=== PATIENT | male | born 1975 | race Caucasian/White ===

== ENCOUNTER 2016-11-14 18:10 | Observation (INO) | payer OTHER ==
--- NOTE | 2016-11-14 18:16 | UCPHY ---
H & P Patient Type: New HPI/ROS: HPI CHIEF COMPLAINT: Chest Pain HISTORY OF PRESENT ILLNESS: this patient very pleasant 41-year-old male, denies any significant medical history does not take any daily medications, he presents to the urgent care by private vehicle after states over the past few days every time he goes to run he gets exertional chest discomfort he describes is achiness in left side of his chest. He also describes as tightness. It does not radiate up his neck or down his arm. He does not get nauseous or diaphoretic with it. He has to stop a running for the chest pain to go away. patient tells me initially started having this discomfort on Monday when he was going for a run, he then felt a little tightness in his chest on Monday as well as Monday however was exacerbated when he runs for run today on Monday. Past Medical History: No significant medical history Past Surgical History:no significant surgical Social History: Denies daily use drugs alcohol tobacco products Family History: noncontributory , specifically no significant family history of coronary artery disease or premature cardiac disease ROS REVIEW OF SYSTEMS: A comprehensive 10 point review of systems is otherwise negative aside from elements mentioned in the history of present illness. Exam Constitutional triage nursing summary reviewed, vital signs reviewed, awake/ alert. Eyes normal conjunctivae and sclera, EOMI, PERRLA. HENT normal inspection, atraumatic, moist mucus membranes, no epistaxis, neck supple/ no meningismus, no raccoon eyes. Respiratory clear to auscultation bilaterally, normal breath sounds, no respiratory distress, no wheezing. Cardiovascular rate normal, regular rhythm, no murmur, no edema, distal pulses normal. Gastrointestinal soft, non-tender, no rebound, no guarding, normal bowel sounds, no distension, no pulsatile mass. Genitourinary no CVA tenderness. Musculoskeletal no midline vertebral tenderness, full range of motion, no calf swelling, no tenderness of extremities, no meningismus, good pulses, neurovascularly intact. Skin pink, warm, & dry, no rash, skin atraumatic. Neurologic awake, alert and oriented x 3, AAOx3, moves all 4 extremities equally, motor intact, sensory intact, CN II-XII intact, normal cerebellar, normal vision, normal speech. Psychiatric normal mood/affect. Heme/Lymph/Immune no lymphadenopathy. Differential diagnosis includes but is not limited to: ACS, atypical chest pain , pneumothorax, pneumonia, pulmonary embolism, aortic dissection, congestive heart failure, tumor, musculoskeletal pain, esophageal pain, GERD, peptic ulcer disease, pancreatitis Medical Decision Making:This patient had an IV established obtain blood work, he will need EKG be placed on full night monitor, will need troponin, D-dimer , chest x-ray full-dose aspirin be given to him. At this time he tells me feels lightheaded. He has not had significant chest comfort at this time. Re-evaluation: EKG interpretation by me on record in [email or web address] system. Impression Time of EKG , this is sinus rhythm rate of 58, no acute ischemic changes specifically no ST elevation, ST depression, T-wave abnormalities prolonged intervals. Unremarkable EKG. 1902: EKG interpretation by me on record in [employer] system. Impression Time of EKG now 1856, this is sinus rhythm rate of 51 I do not appreciate acute ischemic changes or ST elevation ST depression T-wave abnormalities. ED x-ray chest: negative for acute cardiopulmonary disease. Image interpreted by myself. 2012: Re-evaluation at this time this patient is resting comfortably chest pain-free. EKG is nonischemic, troponin negative. Due to his exertional chest discomfort left-sided chest when he runs and relief of chest pain when he stops running this concerning for cardiac disease. Safest thing to do for this patient to be admitted to the [facility] chest pain observation unit and rule out serial cardiac enzymes and a stress test. Spoke with Dr. Pillai who agrees to admit this patient. Patient agrees for transfer and admission. Source: Patient - Family History Significant Family History: No pertinent family hx Constitutional: Initial Vital Signs Temperature (C) 36.6 C 11/14/16 18:24 Heart Rate 53 L 11/14/16 18:24 Respiratory Rate 18 11/14/16 18:24 Blood Pressure 147/74 H 11/14/16 18:24 O2 Sat (%) 97 11/14/16 18:24 O2 Delivery Mode Room Air Allergies/Adverse Reactions: No Known Allergies Allergy (Unverified 11/14/16 18:24) Home Medications: Medication Instructions Recorded NK [No Known Home Meds] 11/14/16 Medical Decision Making - Data Points Laboratory Results: Laboratory Results 11/14/16 18:20 11/14/16 18:20 11/14/16 11/14/16 11/14/16 18:26 18:20 18:20 WBC RBC Hgb Hct MCV MCH MCHC RDW Plt Count MPV Neut % (Auto) Lymph % (Auto) [place] % (Auto) Eos % (Auto) Baso % (Auto) Nucleat RBC Rel Count Absolute Neuts (auto) Absolute Lymphs (auto) Absolute Monos (auto) Absolute Eos (auto) Absolute Basos (auto) Absolute Nucleated RBC Immature Gran % Immature Gran # PT 12.9 SEC SEC (12.0-15.0) INR 1.00 (0.83-1.16) APTT 28.3 SEC SEC (23.0-38.0) D-Dimer < 0.27 ug/mLFEU ug/mLFEU (0.00-0.50) Sodium 142 mEq/L mEq/L (134-144) Potassium 4.0 mEq/L mEq/L (3.5-5.2) Chloride 102 mEq/L mEq/L (97-110) Carbon Dioxide 25 mEq/l mEq/l (22-31) Anion Gap 15 mEq/L mEq/L (8-16) BUN 17 mg/dL mg/dL (7-23) Creatinine 0.8 mg/dL mg/dL (0.7-1.3) Estimated GFR > 60 Glucose 95 mg/dL mg/dL (70-100) Calcium 8.7 mg/dL mg/dL (8.5-10.4) Magnesium 1.9 mg/dL mg/dL (1.6-2.3) Total Bilirubin 1.4 mg/dL mg/dL (0.1-1.4) Conjugated Bilirubin 0.1 mg/dL mg/dL (0.0-0.5) Unconjugated Bilirubin 1.3 mg/dL H mg/dL (0.0-1.1) AST 33 IU/L IU/L (17-59) ALT 36 IU/L IU/L (21-72) Alkaline Phosphatase 49 IU/L IU/L (38-126) Troponin I < 0.012 ng/mL ng/mL (0-0.034) NT-Pro-B Natriuret Pep 36 pg/mL pg/mL (0-125) Total Protein 7.2 g/dL g/dL (6.3-8.2) Albumin 4.0 g/dL g/dL (3.5-5.0) Lipase 173.0 IU/L IU/L (23-300) 11/14/16 18:20 WBC 7.12 10^3/uL 10^3/uL (3.80-9.50) RBC 4.47 10^6/uL 10^6/uL (4.40-6.38) Hgb 14.2 g/dL g/dL (13.7-17.5) Hct 40.2 % % (40.0-51.0) MCV 89.9 fL fL (81.5-99.8) MCH 31.8 pg pg (27.9-34.1) MCHC 35.3 g/dL g/dL (32.4-36.7) RDW 12.2 % % (11.5-15.2) Plt Count 190 10^3/uL 10^3/uL (150-400) MPV 10.4 fL fL (8.7-11.7) Neut % (Auto) 53.5 % % (39.3-74.2) Lymph % (Auto) 34.1 % % (15.0-45.0) [place] % (Auto) 10.7 % % (4.5-13.0) Eos % (Auto) 1.0 % % (0.6-7.6) Baso % (Auto) 0.4 % % (0.3-1.7) Nucleat RBC Rel Count 0.0 % % (0.0-0.2) Absolute Neuts (auto) 3.81 10^3/uL 10^3/uL (1.70-6.50) Absolute Lymphs (auto) 2.43 10^3/uL 10^3/uL (1.00-3.00) Absolute Monos (auto) 0.76 10^3/uL 10^3/uL (0.30-0.80) Absolute Eos (auto) 0.07 10^3/uL 10^3/uL (0.03-0.40) Absolute Basos (auto) 0.03 10^3/uL 10^3/uL (0.02-0.10) Absolute Nucleated RBC 0.00 10^3/uL 10^3/uL (0-0.01) Immature Gran % 0.3 % % (0.0-1.1) Immature Gran # 0.02 10^3/uL 10^3/uL (0.00-0.10) PT INR APTT D-Dimer Sodium Potassium Chloride Carbon Dioxide Anion Gap BUN Creatinine Estimated GFR Glucose Calcium Magnesium Total Bilirubin Conjugated Bilirubin Unconjugated Bilirubin AST ALT Alkaline Phosphatase Troponin I NT-Pro-B Natriuret Pep Total Protein Albumin Lipase Departure - Departure Disposition: [facility] Inpatient Acute Clinical Impression: Chest pain Qualifiers: Chest pain type: unspecified Qualified Code(s): R07.9 - Chest pain, unspecified Condition: Fair Referrals: DANIEL DRAKE MD [Other] - As per Instructions - PQRS PQRS Measurement: n/a
--- NOTE | 2016-11-14 18:21 | CPEKG ---
Heart Rate: 58 RR Interval: 1034 P-R Interval: 152 QRSD Interval: 92 QT Interval: 424 QTC Interval: 417 P [place]: 63 QRS [place]: 84 T Wave [place]: 56 EKG Severity - NORMAL ECG - EKG Impression: SINUS RHYTHM Electronically Signed By: Nagi Pablo 15-Nov-2016 15:10:37
[2016-11-14] MEDS ORDERED: ASPIRIN 81 MG CHEWABLE TAB PO ONE (18:23)
[2016-11-14 18:46] LABS: % IMMATURE GRANULYOCYTES 0.3 % (0.0-1.1); ABSOLUTE IMMATURE GRANULOCYTES 0.02 10^3/uL (0.00-0.10); ADD DIFF? NO; ADD MORPH? NO; ADD SCAN? NO; ATYPICAL LYMPHOCYTE FLAG 0 (0-99); FRAGMENT RBC FLAG 0 (0-99); HEMATOCRIT 40.2 % (40.0-51.0); HEMOGLOBIN 14.2 g/dL (13.7-17.5); LEFT SHIFT FLG 0 (0-99); LIPEMIA HEMOLYSIS FLAG 90 (0-99); MEAN CELL HEMOGLOBIN 31.8 pg (27.9-34.1); MEAN CELL HEMOGLOBIN CONCENTR. 35.3 g/dL (32.4-36.7); MEAN CELL VOLUME 89.9 fL (81.5-99.8); MEAN PLATELET VOLUME 10.4 fL (8.7-11.7); PLATELET CLUMPS FLAG 10 (0-99); PLATELET COUNT 190 10^3/uL (150-400); RED BLOOD CELL COUNT 4.47 10^6/uL (4.40-6.38); RED CELL DISTRIBUTION WIDTH 12.2 % (11.5-15.2)
[2016-11-14 18:59] LABS: ALANINE AMINOTRANSFERASE 36 IU/L (21-72); ALKALINE PHOSPHATASE 49 IU/L (38-126); ANION GAP 15 mEq/L (8-16); ASPARTATE AMINOTRANSFERASE 33 IU/L (17-59); BILIRUBIN,TOTAL 1.4 mg/dL (0.1-1.4); BILIRUBIN-CONJUGATED 0.1 mg/dL (0.0-0.5); BILIRUBIN-UNCONJUGATED 1.3 mg/dL (0.0-1.1); CALCIUM 8.7 mg/dL (8.5-10.4); CARBON DIOXIDE 25 mEq/l (22-31); CHLORIDE 102 mEq/L (97-110); CREATININE 0.8 mg/dL (0.7-1.3); GLOMERULAR FILTRATION RATE > 60; GLUCOSE 95 mg/dL (70-100); MAGNESIUM 1.9 mg/dL (1.6-2.3); SODIUM 142 mEq/L (134-144); TOTAL PROTEIN 7.2 g/dL (6.3-8.2)
[2016-11-14 19:07] LABS: PROTIME(PATIENT) 12.9 SEC (12.0-15.0)
[2016-11-14 19:08] LABS: APTT 28.3 SEC (23.0-38.0)
--- NOTE | 2016-11-14 20:22 | CPEKG ---
Heart Rate: 51 RR Interval: 1176 P-R Interval: 164 QRSD Interval: 96 QT Interval: 448 QTC Interval: 413 P [place]: 65 QRS [place]: 84 T Wave [place]: 60 EKG Severity - NORMAL ECG - EKG Impression: SINUS RHYTHM Electronically Signed By: Nagi Pablo 15-Nov-2016 15:10:37
[2016-11-15] MEDS ORDERED: ONDANSETRON 4 MG/2 ML VIAL IVP PRN (00:24)
[2016-11-15] MEDS ORDERED: ACETAMINOPHEN 325 MG TAB PO PRN (00:24)
[2016-11-15] MEDS ORDERED: ONDANSETRON DISINTEGRATING 4 MG TAB PO PRN (00:24)
[2016-11-15] MEDS ORDERED: NITROGLYCERIN 0.4 MG BTL SL PRN (00:24)
--- NOTE | 2016-11-15 04:46 | PDGENHP ---
History and Physical - Chief Complaint chest pain - History of Present Illness patient a 41-year-old male with no significant past medical history [facility] with a complaint of chest pain. patient 1st noticed his symptoms on Monday, when he was on mile 5 of his 8 mile run he began experiencing chest tightness. he was forced to slow his paced due to the symptoms, which lasted the entirety of him running. Symptoms improved with rest. Chest tightness was nonradiating and not associated with any palpitations , shortness of breath, dizziness or lightheadedness. Over the weekend he took a break from running and did not experience any chest symptoms. On the day of presentation patient again went out for run, this time when running uphill he again noticed left-sided chest tightness /shortness. He stopped running and went home. While sitting at dinner he again felt left-sided chest soreness / tightness and associated dizziness. given presence of his symptoms at rest, he decided to go to the urgent care for further evaluation. Of note, patient exercises regularly without symptoms. He has never undergone a stress test, he has no family history of cardiac disease and is a nonsmoker. [facility] patient was afebrile hemodynamically stable. initial blood work including CBC, D-dimer, troponin and BNP were all within normal limits. EKG did not show any evidence of acute ischemia. Chest x -ray was also unremarkable. He was given aspirin and then transported to [facility] for admission History Information - Allergies/Home Medication List Allergies/Adverse Reactions: No Known Allergies Allergy (Unverified 11/14/16 18:24) Home Medications: NK [No Known Home Meds] 11/14/16 [Last Taken Unknown] I have personally reviewed and updated: family history, medical history, social history, surgical history - Past Medical History no pertinent PMH - Surgical History Additional surgical history: hernia repair - Family History Additional family history: GF: cad in 80s - Social History Smoking Status: Never smoked Alcohol Use: Occasionally Drug Use: None Additional social history: Patient works as a computer hardware engineer, lives with . Review of Systems ROS: 10pt was reviewed & negative except for what was stated in HPI & below Physical Exam Temp Pulse Resp BP Pulse Ox 36.8 C 50 L 18 117/65 98 11/15/16 00:48 11/15/16 00:48 11/15/16 00:48 11/15/16 00:48 11/14/16 21:20 O2 (L/minute) 94 Constitutional: no apparent distress, appears nourished, not in pain Eyes: PERRL, anicteric sclera, EOMI Ears, Nose, Mouth, Throat: moist mucous membranes, hearing normal, ears appear normal, no oral mucosal ulcers Cardiovascular: regular rate and rhythym, no murmur, rub, or gallop, pulses symmetric bilaterally, No JVD, No edema Peripheral Pulses: 2+: dorsalis-pedis (R), dorsalis-pedis (L) Respiratory: no respiratory distress, no rales or rhonchi, clear to auscultation Gastrointestinal: normoactive bowel sounds, soft, non-tender abdomen, no palpable masses, No guarding, No rebound, No distension Genitourinary: no bladder fullness, no bladder tenderness Skin: warm, normal color, no rashes or abrasions, no fluctuance, no induration, No mottled Musculoskeletal: full muscle strength, no muscle tenderness, normal joint ROM, no joint effusions Neurologic: AAOx3, sensation intact bilaterally, CN II-XII Intact, No weakness, No numbness, No pronator drift Psychiatric: interacting appropriately, not anxious, not encephalopathic, thought process linear Lab Data & Imaging Review 11/14/16 18:20 11/14/16 18:20 WBC 7.12 10^3/uL (3.80-9.50) 11/14/16 18:20 RBC 4.47 10^6/uL (4.40-6.38) 11/14/16 18:20 Hgb 14.2 g/dL (13.7-17.5) 11/14/16 18:20 Hct 40.2 % (40.0-51.0) 11/14/16 18:20 MCV 89.9 fL (81.5-99.8) 11/14/16 18:20 MCH 31.8 pg (27.9-34.1) 11/14/16 18:20 MCHC 35.3 g/dL (32.4-36.7) 11/14/16 18:20 RDW 12.2 % (11.5-15.2) 11/14/16 18:20 Plt Count 190 10^3/uL (150-400) 11/14/16 18:20 MPV 10.4 fL (8.7-11.7) 11/14/16 18:20 Neut % (Auto) 53.5 % (39.3-74.2) 11/14/16 18:20 Lymph % (Auto) 34.1 % (15.0-45.0) 11/14/16 18:20 [place] % (Auto) 10.7 % (4.5-13.0) 11/14/16 18:20 Eos % (Auto) 1.0 % (0.6-7.6) 11/14/16 18:20 Baso % (Auto) 0.4 % (0.3-1.7) 11/14/16 18:20 Nucleat RBC Rel Count 0.0 % (0.0-0.2) 11/14/16 18:20 Absolute Neuts (auto) 3.81 10^3/uL (1.70-6.50) 11/14/16 18:20 Absolute Lymphs (auto) 2.43 10^3/uL (1.00-3.00) 11/14/16 18:20 Absolute Monos (auto) 0.76 10^3/uL (0.30-0.80) 11/14/16 18:20 Absolute Eos (auto) 0.07 10^3/uL (0.03-0.40) 11/14/16 18:20 Absolute Basos (auto) 0.03 10^3/uL (0.02-0.10) 11/14/16 18:20 Absolute Nucleated RBC 0.00 10^3/uL (0-0.01) 11/14/16 18:20 Immature Gran % 0.3 % (0.0-1.1) 11/14/16 18:20 Immature Gran # 0.02 10^3/uL (0.00-0.10) 11/14/16 18:20 PT 12.9 SEC (12.0-15.0) 11/14/16 18:20 INR 1.00 (0.83-1.16) 11/14/16 18:20 APTT 28.3 SEC (23.0-38.0) 11/14/16 18:20 D-Dimer < 0.27 ug/mLFEU (0.00-0.50) 11/14/16 18:20 Sodium 142 mEq/L (134-144) 11/14/16 18:20 Potassium 4.0 mEq/L (3.5-5.2) 11/14/16 18:20 Chloride 102 mEq/L (97-110) 11/14/16 18:20 Carbon Dioxide 25 mEq/l (22-31) 11/14/16 18:20 Anion Gap 15 mEq/L (8-16) 11/14/16 18:20 BUN 17 mg/dL (7-23) 11/14/16 18:20 Creatinine 0.8 mg/dL (0.7-1.3) 11/14/16 18:20 Estimated GFR > 60 11/14/16 18:20 Glucose 95 mg/dL (70-100) 11/14/16 18:20 Calcium 8.7 mg/dL (8.5-10.4) 11/14/16 18:20 Magnesium 1.9 mg/dL (1.6-2.3) 11/14/16 18:20 Total Bilirubin 1.4 mg/dL (0.1-1.4) 11/14/16 18:20 Conjugated Bilirubin 0.1 mg/dL (0.0-0.5) 11/14/16 18:20 Unconjugated Bilirubin 1.3 mg/dL (0.0-1.1) H 11/14/16 18:20 AST 33 IU/L (17-59) 11/14/16 18:20 ALT 36 IU/L (21-72) 11/14/16 18:20 Alkaline Phosphatase 49 IU/L (38-126) 11/14/16 18:20 Troponin I < 0.012 ng/mL (0-0.034) 11/15/16 00:50 NT-Pro-B Natriuret Pep 36 pg/mL (0-125) 11/14/16 18:20 Total Protein 7.2 g/dL (6.3-8.2) 11/14/16 18:20 Albumin 4.0 g/dL (3.5-5.0) 11/14/16 18:20 Lipase 173.0 IU/L (23-300) 11/14/16 18:20 Visualized and Interpreted Chest x-ray results: Yes Chest X-Ray results: no infiltrate, normal Visualized and Interpreted EKG results: Yes EKG Interpretation: Positive for: normal sinsus rhythm (sinus bradycadia, no st/ t wave changes) Assessment & Plan Assessment: patient is a 41-year-old male with no significant past medical history who presents to the ED with progressive exertional chest pain with past 3 days. Initial workup was unremarkable for ACS, patient was admitted to the [facility] for further risk stratification Plan: # chest pain patient's description of quality, location and timing of symptoms are concerning for cardiac etiology. Patient does not have significant cardiac risk factors. willadmit under observation for monitoring of serial cardiac enzymes, EKGs and if workup remains negative, will obtain exercise stress test in a.m. # dispo: admit to observation for chest pain w/u # Full code
[2016-11-15 07:36] VITALS: BP 106/59; RESP 16
--- NOTE | 2016-11-15 08:51 | CPEKG ---
Heart Rate: 44 RR Interval: 1364 P-R Interval: 168 QRSD Interval: 92 QT Interval: 464 QTC Interval: 397 P [place]: 70 QRS [place]: 88 T Wave [place]: 61 EKG Severity - OTHERWISE NORMAL ECG - EKG Impression: SINUS BRADYCARDIA EKG Impression: ATRIAL PREMATURE COMPLEX Electronically Signed By: Nagi Pablo 15-Nov-2016 15:10:37
[2016-11-15] MEDS ORDERED: ASPIRIN 325 MG TAB PO SCH (09:00)
[2016-11-15] MEDS ORDERED: NS 1,000 ML IV SCH (09:30)
--- NOTE | 2016-11-15 11:37 | CPIP ---
[f rep st] INVASIVE CARDIAC PROCEDURE PROCEDURE: Nuclear stress test. INDICATIONS: The patient is a very active gentleman who has had repeated episodes of chest tightness with exercise. This chest tightness improves with rest. It has been coming on intermittently for days. He has also had episodes where he has felt lightheaded and somewhat dizzy. FINDINGS: His EKG shows repolarization abnormalities which are nonspecific. He has an interventricular conduction delay. Test is being done with nuclear imaging. He exercised for 16 minutes and 25 seconds on a Josué protocol. He had no episodes of chest discomfort. He had nonspecific upsloping ST-segment depression that was variable. He had no diagnostic EKG changes during the stress test. He had no arrhythmias with exercise. The test was stopped because of fatigue. Nuclear images pending. /[id number]/MODL MTDD
[2016-11-15 11:54] VITALS: PULSE 55; TEMP 98.2; O2SAT 93
--- NOTE | 2016-11-15 12:07 | GCON ---
[f rep st] CONSULTATION CARDIOVASCULAR CONSULTATION CHIEF COMPLAINT: Chest pain. The patient is an athletic gentleman who has developed anterior chest discomfort. On Monday, the day of this dictation is a Monday, on the Monday before this he ran 5 miles and developed a tightness in his chest that really stuck with him and it felt like he had done an enormous workup which he had not actually done. He had that kind of feeling of being worn out when he does something really, really hard and he could not understand why that would happen. The chest tightness was across the anterior chest. It did not radiate , but it continued intermittently for a day or so with him. There was nothing that changed the pain such as position or food. Activity would make it worse. Rest would make it better, but nothing else changed the pain. Position did not. Cough did not. He had no sputum production. He had no other complaints with it. He has not had fevers or chills. No symptoms of upper respiratory tract symptoms. He then felt a little better, and then Monday decided to go run again and he headed up a steep hill, and he had to walk up the hill, which he would never ever do. This a very dramatic change for him. He rested and the pain went away , but it was intense and it continued for the rest of the day intermittently. Later on that Monday he started feeling uncomfortable. He felt dizzy. He just felt very wrong so he came into the emergency room and was admitted to the hospital. Earlier in the week when his symptoms started on Monday, the Monday, Monday and before that he felt quite well. The day before he ran hard for 8 miles and did a series of 10-second sprints without any problems. He has not had other limiting symptoms recently. He has not had these pains before. There are no associated GI or pulmonary complaints. CARDIAC RISK FACTORS: Negative for hypertension, hyperlipidemia, diabetes mellitus, hyperuricemia, obesity, family history, smoking history or known coronary artery disease. MEDICATIONS: None. ALLERGIES: None. REVIEW OF SYSTEMS: A 12-point review of systems is negative except as noted above. SURGICAL HISTORY: Hernia repair. FAMILY HISTORY: He has no family history of premature coronary disease. No history of unexplained sudden at a young age. 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 He got his master's degree at the [employer] in [place]. His company is doing [employer] engineering. He lives with his and they have 3 daughters. The children and his are healthy. He exercises 3 or 4 times a week and can easily run 5-8 miles without any symptoms. He does not smoke. He does not drink significant amounts of alcohol. MEDICATIONS: None. PHYSICAL EXAM: VITAL SIGNS: Blood pressure 110/77, heart rate 66, respiratory rate 12. He is sitting comfortably in the hospital bed. HEENT: Pupils equal, round, and reactive. Mucous membranes in the mouth moist. NECK: Supple. CARDIOVASCULAR: S1-S2. Soft systolic murmur left sternal border. No diastolic murmur. No S3, S4. No rubs. PULMONARY: Rhonchi bilaterally. No rales, wheezing, or dullness. ABDOMEN: Soft, nontender, without masses. CVA: No tenderness. EXTREMITIES: No edema, inflammation or ulceration. NEURO: Cranial nerves 2-12 grossly normal. Motor and sensory intact. LABORATORY: EKG showed nonspecific repolarization, abnormalities and intraventricular conduction delay. Troponins are negative x3. He had a CBC, D- dimer and BNP that were all normal. Chest x-ray was negative. ASSESSMENT AND PLAN: Chest pain. This gentleman is getting chest discomfort with exertion that is a tightness that goes away with rest. Obviously we have to rule out severe coronary artery disease. Our approach is going to be to do a nuclear stress test. He is not having rest discomfort. He is not having any acute EKG changes and his troponins are all negative indicating he does not need to go right to the roving tester laboratory at this point in time. We will do a treadmill stress test and push him hard and see how he does. I will be there for it myself. We will get the study with nuclear images. If his nuclear imaging stress test is normal, I would do a CT angiogram of the great vessels as well as a CT coronary angiogram to look for anomalous coronary arteries. Because he will be getting dye one way or another, if the nuclear stress test is abnormal, we will follow that up with an angiogram. On the other hand, if that all works out to be fine, I would then proceed with further evaluation of the vessels as mentioned with the CT scans. I have discussed these options with him. We will follow closely with what happens. We have talked about prevention. I do not find in the differential diagnoses anything that makes me think he has disease of the great vessels. His pulses are full and equal. I do not think he has significant valvular heart disease. I do not think that he has other significant pulmonary pathology causing some of his symptoms. We will watch him closely and see what develops here. /[id number]/MODL MTDD
[2016-11-15] MEDS ORDERED: IOPAMIDOL (ISOVUE-300) 100 ML BTL IV ONE (13:19)
--- NOTE | 2016-11-15 19:34 | GDS ---
[f rep st] DISCHARGE SUMMARY ACUTE DIAGNOSES: 1. Acute chest pain, noncardiac in origin. 2. Acute bronchospasm possibly secondary to cat allergy and cat exposure. CONSULTATION: Cardiology. PROCEDURES: Nuclear myocardial perfusion nuclear scan was performed showing no convincing evidence of myocardial ischemia. Cardiac CT coronary was normal, showing no coronary plaque or dissection or aneurysm. The nuclear stress test was performed and he exercised for 16 minutes and 25 seconds on a Josué protocol without episodes of chest discomfort. The test was felt to be normal. HOSPITAL COURSE: This is a 41-year-old gentleman who experienced chest pain on 3 occasions prior to admission during exertion. It was left anterior pain without radiation. Also noted that he has be en exposed to a cat on a daily basis for the last week and notes some itchy eyes and a little runny nose. He has not noticed any shortness of breath, cough, tightness of voice or wheezing. He has no prior history of a cat allergy. The gentleman received a nuclear stress test on the treadmill and the test was normal. It showed no evidence of cardiac ischemia. Because of the persistence of the pain and concern that it may be of obscure cardiac origin, a CT angio of the coronary arteries was performed and was normal. Troponin series was also entirely negative. I have informed the gentleman the possibility that his pain is secondary to bronchospasm due to an a llergy to his cat. An albuterol inhaler will be prescribed for the gentleman to use at home. The e xamination here in the hospital shows no wheezing or shortness of breath and he is not hypoxic. Aliza st x-ray, which was done on admission, shows normal. DISCHARGE MEDICATIONS: Proventil inhaler 2 puffs q.4 hours p.r.n. shortness of breath. PLAN: The gentleman is discharged to home on regular diet. He will follow up with his PCP, Dr. Mauro Matthews, in 2 weeks, if he notices there is any improvement with the Proventil inhaler. If his c hest pain worsens or persists, he will follow up with Dr. Petros Vora, and certainly if it become s worse he will return to the emergency department. This information has been communicated verbally to the patient and he understands. This discharge required 40 minutes, greater than 50% to correctional substance abuse counselor, coordinate care and to review findi ngs with Radiology and the accounting administrator. /[id number]/MODL
== END 2016-11-15 18:18 | disposition home or self-care (01) ==
LOC: CED 18:10 → F1N 21:59
PROVIDERS: ADMIT Internal Medicine; ATTEND Internal Medicine Pulmonary Disease
DX: R07.1 Chest pain on breathing (principal); J98.01 Acute bronchospasm
CPT/HCPCS: 71010; 75574; 78452; 93005; 93017; 99213; A9500; G0378; 80048-PO; 80076-PO; 83690-PO; 83735-PO; 83880-PO; 84484-PO; 85025-PO; 85378-PO; 85610-PO; 85730-PO; G0463-PO; Q9967